=== PATIENT | male | born 1930 ===

== ENCOUNTER 2016-11-19 06:51 | Inpatient (IN) | payer MEDICARE ==
[2016-11-05 10:25] VITALS: BMI 33.2
[2016-11-19] MEDS ORDERED: Propofol 10 mg/ml Inj (20 ML) ONE (08:38)
[2016-11-19] MEDS ORDERED: Midazolam 2 MG/2 ML VIAL ONE (08:38)
[2016-11-19] MEDS ORDERED: Rocuronium 10 mg/ml (5 ml) ONE (08:40)
[2016-11-19] MEDS ORDERED: Phenylephrine 10 mg/ml Inj ONE ×2 (08:40)
[2016-11-19] MEDS ORDERED: CEFOXITIN IVPB ONE (08:52)
[2016-11-19] MEDS ORDERED: Bupivacaine/Epi 0.25%-1:200,000 10 ml PF inj IJ ONE (08:52)
[2016-11-19] MEDS ORDERED: DEXTROSE IVPB ONE (08:52)
[2016-11-19] MEDS ORDERED: Lidocaine 1% Inj (20ml) ONE (08:53)
[2016-11-19] MEDS ORDERED: Albuterol HFA 90 mcg/actuation (8 g) ONE (09:01)
[2016-11-19] MEDS ORDERED: ceFAZolin IV 2 gm in Dextrose 50 ML IVPB ONE (09:12)
[2016-11-19] MEDS ORDERED: metroNIDAZOLE IV 500 mg/100 ml 100 ML ONE (09:12)
[2016-11-19] MEDS ORDERED: Neostigmine Methylsulfate 3mg/3ml Syringe IV ONE (11:50)
[2016-11-19] MEDS ORDERED: Lactated Ringer's 1,000 ML IV ONE ×3 (12:35→15:41)
[2016-11-19] MEDS ORDERED: Morphine 4 MG/ML VIAL ONE ×3 (13:07→14:49)
[2016-11-19] MEDS ORDERED: ceFAZolin IV 1 gm in Dextrose 100 ML IVPB ONE (13:55)
--- NOTE | 2016-11-19 15:46 | PCM.SURG1 ---
Surgeon's Initial Post Op Note - Surgeon's Notes Surgeon: Dr. Lopez Mold Capper Helper: Dr. 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
[2016-11-19] MEDS ORDERED: HYDROmorphone 0.5 mg/0.5 ml ISec IVP PRN (15:47)
[2016-11-19] MEDS ORDERED: Morphine Monoject Barrel PCA 1mg/ml IV SCH ×3 (15:48→18:39)
[2016-11-19] MEDS ORDERED: (Novolin R) Insulin Human Regular 100 units/ml vial SC SCH (16:30)
[2016-11-19] MEDS: Dextrose 5%/0.45% NS 1,000 ML IV SCH ×2 (16:30→18:48)
[2016-11-19] MEDS ORDERED: Morphine Monoject Barrel PCA 1mg/ml IV PRN (18:37)
--- NOTE | 2016-11-19 22:28 | CP.PCM.CON ---
History of Present Illness - History of Present Illness History of Present Illness: REASON FOR CONSULTATION; MEDICAL MANAGMENT OF DM HPI:DIDIER GUZMAN MALE WITNH DM, HTN, EX SMOKER, UNDERWENT Robotic assisted abdominal perineal resection for rectal carcinoma,he eyad any history of heart problems, right now he is being started on pateint controlled analgesia by pump , he is calm and quiet, he feels some soreness in thraot and post op pain diffuse in abdomen, denies any chest pain, shortness of breath, pt is in bed and cant move Review of Systems - Review of Systems Systems not reviewed;Unavailable: Acuity of Condition - Constitutional Constitutional: Fatigue, Lethargy - EENT Eyes: absent: As Per HPI, Blind Spots, Blurred Vision, Change in Vision, Decreased Night Vision, Diplopia, Discharge, Dry Eye, Exophthalmos, Floaters, Irritation, Itchy Eyes, Loss of Peripheral Vision, Pain, Photophobia, Requires Corrective Lenses, Sees Flashes, Spots in Vision, Tunnel Vision, Other Visual Disturbances, Loss of Vision, Other Nose/Mouth/Throat: absent: As Per HPI, Epistaxis, Nasal Congestion, Nasal Discharge, Nasal Obstruction, Nasal Trauma, Nose Pain, Post Nasal Drip, Sinus Pain, Sinus Pressure, Bleeding Gums, Change in Voice, Dental Pain, Dry Mouth, Dysphagia, Halitosis, Hoarsness, Lip Swelling, Mouth Lesions, Mouth Pain, Odynophagia, Sore Throat, Throat Swelling, Tongue Swelling, Facial Pain, Neck Pain, Neck Mass, Other - Cardiovascular Cardiovascular: absent: As Per HPI, Acrocyanosis, Chest Pain, Chest Pain at Rest , Chest Pain with Activity, Claudication, Diaphoresis, Dyspnea, Dyspnea on Exertion, Edema, Irregular Heart Rhythm, Pain Radiating to Arm/Neck/Jaw, Leg Edema, Leg Ulcers, Lightheadedness, Orthopnea, Palpitations, Paroxysmal Nocturnal Dyspnea, Pedal Edema, Radiating Pain, Rapid Heart Rate, Slow Heart Rate, Syncope, Other - Respiratory Respiratory: absent: As Per HPI, Cough, Dyspnea, Hemoptysis, Dyspnea on Exertion , Wheezing, Snoring, Stridor, Pain on Inspiration, Chest Congestion, Excessive Mucous Production, Change in Mucous Color, Pain with Coughing, Other - Gastrointestinal Gastrointestinal: Abdominal Pain - Genitourinary Genitourinary: absent: As Per HPI, Change in Urinary Stream, Difficulty Urinating, Dysuria, Flank Pain, Hematuria, Pyuria, Nocturia, Urinary Incontinence, Urinary Frequency, Urinary Hesitance, Urinary Urgency, Voiding Freq/Small Amts, Freq UTI, Hx Renal/Bladder Calculi, Hx /Renal Surgery, Bladder Distension, Other Past Patient History - Past Medical History & Family History Past Medical History?: Yes - Past Social History Smoking Status: Former Smoker - CARDIAC Hx Cardiac Disorders: Yes Hx Hypercholesterolemia: Yes Hx Hypertension: Yes - PULMONARY Hx Respiratory Disorders: Yes Hx Chronic Obstructive Pulmonary Disease (COPD): Yes - NEUROLOGICAL Hx Neurological Disorder: Yes Hx Seizures: Yes (03/22/02; 04/22/02; 08/28/03) Other/Comment: HX: SEIZURES X3 EPISODES-NONE SINCE 08/28/03 - HEENT Hx HEENT Problems: Yes Hx Cataracts: Yes (BILAT.) - ENDOCRINE/METABOLIC Hx Endocrine Disorders: Yes Hx Diabetes Mellitus Type 2: Yes Hx Hypothyroidism: Yes - HEMATOLOGICAL/ONCOLOGICAL Hx Blood Disorders: Yes Hx Cancer: Yes (COLON CANCER) Hx Chemotherapy: Yes (AND RADIATION [place].(FINISHED 08/19/2013)) - MUSCULOSKELETAL/RHEUMATOLOGICAL Hx Falls: No - GASTROINTESTINAL Hx Gastrointestinal Disorders: Yes Other/Comment: HX: COLON CANCER. HX: RECURRENT SQUAMOUS CELL CARCINOMA OF RECTUM. - PSYCHIATRIC Hx Substance Use: No - SURGICAL HISTORY Hx Surgeries: Yes Hx Appendectomy: Yes Hx Cataract Extraction: Yes (BILAT. WITH IOL IMPLANTS) Other/Comment: HX: COLON RESECTION 2012-COLON CANCER - ANESTHESIA Hx Anesthesia: Yes Hx Anesthesia Reactions: No Hx Malignant Hyperthermia: No Has any member of the family had a problem w/ anesthesia?: No Meds Allergies/Adverse Reactions: Allergies Allergy/AdvReac Type Severity Reaction Status Date / Time No Known Allergies Allergy Verified 11/05/16 10:25 - Medications Medications: Current Medications Enoxaparin Sodium (Lovenox) 40 mg SC DAILY [facility] Dextrose/Sodium Chloride (Dextrose 5%/0.45% Ns 1000 Ml) 1,000 mls @ 125 mls/hr IV .Q8H [facility] Last Admin: 11/19/16 18:48 Dose: 125 mls/hr Cefazolin Sodium (Ancef) 50 mls @ 100 mls/hr IVPB Q8H [facility] Stop: 11/20/16 05:44 Insulin Human Regular (Novolin R) 0 unit SC ACHS [facility] PRN Reason: Protocol Morphine Sulfate/Sodium Chloride (Morphine [employer] Monoject Barrel) 30 mg IV Q4H PRN; Protocol PRN Reason: Pain, Mild (1-3) Ondansetron HCl (Zofran Inj) 4 mg IVP Q4 PRN PRN Reason: Nausea/Vomiting Physical Exam - Constitutional Appears: No Acute Distress Additional comments: post op - Eye Exam Eye Exam: EOMI, Normal appearance, PERRL Pupil Exam: NORMAL ACCOMODATION, PERRL - ENT Exam ENT Exam: Mucous Membranes Moist, Normal Exam - Respiratory Exam Respiratory Exam: Clear to Auscultation Bilateral, NORMAL BREATHING PATTERN - Cardiovascular Exam Cardiovascular Exam: REGULAR RHYTHM - GI/Abdominal Exam GI & Abdominal Exam: Normal Bowel Sounds, Soft Additional comments: pot op tenderness diffuse Results - Vital Signs Recent Vital Signs: Last Vital Signs Temp 97.9 F 11/19/16 18:49 Pulse 72 11/19/16 18:49 Resp 18 11/19/16 20:30 BP 104/62 11/19/16 18:49 Pulse Ox 98 11/19/16 20:30 - Labs Labs: Laboratory Results - last 24 hr 11/19/16 11/19/16 11/19/16 07:40 07:57 16:25 POC Glucose (mg/dL) 116 H 115 H Blood Type B POSITIVE Antibody Screen Negative 11/19/16 21:45 POC Glucose (mg/dL) 210 H Blood Type Antibody Screen Assessment & Plan (1) Rectal cancer Status: Acute Comment: s/p surgery Robotic assisted abdominal perineal resection (2) Diabetes Status: Acute
[2016-11-19] MEDS: (Novolin R) Insulin Human Regular 100 units/ml vial SC SCH (22:36)
[2016-11-19] MEDS: ceFAZolin 1 gm FROZEN Premix 50 ML IVPB SCH (22:40)
[2016-11-20] MEDS: Dextrose 5%/0.45% NS 1,000 ML IV SCH (01:40)
[2016-11-20] MEDS: ceFAZolin 1 gm FROZEN Premix 50 ML IVPB SCH (05:12)
[2016-11-20] MEDS: (Novolin R) Insulin Human Regular 100 units/ml vial SC SCH ×4 (07:30→22:00)
[2016-11-20 08:19] LABS: BASO % 0.1 % (0.0-2.0); EOS % 0.2 % (0.0-4.0); HEMATOCRIT 34.8 % (35.0-51.0); LYMPH # 0.8 K/uL (1.0-4.3); LYMPH % 10.6 % (20.0-40.0); MEAN CELL VOLUME 97.5 fL (80.0-94.0); MEAN CORPUSCULAR HEMOGLOBIN 32.4 pg (27.0-31.0); MEAN CORPUSCULAR HGB CONC 33.2 g/dL (33.0-37.0); MEAN PLATELET VOLUME 7.4 fL (7.2-11.7); RED CELL DISTRIBUTION WIDTH 13.9 % (11.5-14.5); WHITE BLOOD COUNT 7.5 K/uL (4.8-10.8)
[2016-11-20 08:23] LABS: CHLORIDE 98 mmol/L (98-107)
[2016-11-20 08:24] LABS: SODIUM 135 mmol/L (132-148)
[2016-11-20 08:26] LABS: ALB/GLOB RATIO 1.4 (1.0-2.1); ALKALINE PHOSPHATASE 42 U/L (38-126); AST/SGOT 33 U/L (17-59); BILIRUBIN,TOTAL 0.3 mg/dL (0.2-1.3); CARBON DIOXIDE 28 mmol/L (22-30); GFR AFRICAN-AMERICAN > 60; TOTAL PROTEIN 5.7 g/dL (6.3-8.3)
[2016-11-20 08:27] LABS: ALT/SGPT 38 U/L (21-72); BLOOD UREA NITROGEN 9 mg/dL (9-20); CALCIUM 7.3 mg/dl (8.6-10.4); GLUCOSE,RANDOM 127 mg/dL (75-110)
[2016-11-20] MEDS: Potassium Chloride 20 mEq 100 ML IVPB SCH ×2 (09:45→11:45)
[2016-11-20] MEDS ORDERED: Potassium Chloride 20 mEq 100 ML IVPB SCH (09:45)
[2016-11-20] MEDS: Potassium Chl 40 mEq in D5-1/2 1,000 ML IV SCH ×2 (09:45→18:00)
[2016-11-20] MEDS: Enoxaparin 40 mg Syringe SC SCH (11:00)
--- NOTE | 2016-11-20 16:40 | CP.PCM.PN ---
<Ramya Hills - Last Filed: 11/20/16 16:37> Subjective - Date & Time of Evaluation Date of Evaluation: 11/20/16 Time of Evaluation: 08:00 - Subjective Subjective: GENERAL SURGERY PROGRESS NOTE FOR DR. LOPEZ Patient seen and examined at bedside. He states that he is doing well but does not like the Dilaudid [employer]INTING FILM STRIPPER due to the beeping which kept him up at night. He denies nausea or vomiting. He remains NPO with NG tube in place. Goins in place. Per nurse, patient is not using the PRINTING [employer]M STRIPPER very much. Objective - Vital Signs/Intake and Output Vital Signs (last 24 hours): Temp Pulse Resp BP Pulse Ox 100.5 F H 62 20 111/68 95 11/20/16 15:00 11/20/16 15:30 11/20/16 15:00 11/20/16 15:00 11/20/16 15:00 Intake and Output: 11/20/16 11/20/16 06:59 18:59 Intake Total 2000 Output Total 860 Balance 1140 - Medications Medications: Current Medications Enoxaparin Sodium (Lovenox) 40 mg SC DAILY [facility] Last Admin: 11/20/16 11:00 Dose: 40 mg Potassium Chloride/Dextrose/Sod Cl (Potassium Chl 40 Meq In D5-1/2ns) 1,000 mls @ 125 mls/hr IV .Q8H [facility] Insulin Human Regular (Novolin R) 0 unit SC ACHS [facility] PRN Reason: Protocol Last Admin: 11/20/16 11:30 Dose: Not Given Morphine Sulfate (Morphine) 4 mg IV Q4 PRN PRN Reason: Pain, moderate (4-7) Ondansetron HCl (Zofran Inj) 4 mg IVP Q4 PRN PRN Reason: Nausea/Vomiting - Labs Labs: 11/20/16 08:09 11/20/16 08:09 - Constitutional Appears: Non-toxic, No Acute Distress - Head Exam Head Exam: ATRAUMATIC, NORMAL INSPECTION - Eye Exam Eye Exam: EOMI, Normal appearance - Respiratory Exam Respiratory Exam: NORMAL BREATHING PATTERN. absent: Respiratory Distress - Cardiovascular Exam Cardiovascular Exam: +S1, +S2 - GI/Abdominal Exam GI & Abdominal Exam: Soft, Tenderness (mild tenderness near incision site). absent: Distended, Firm, Guarding, Rigid, Rebound Additional comments: Colostomy bag with small amount of serosanguinous liquid - Rectal Exam Additional comments: Dressing clean/dry/intact Lionel drain with 110 cc since surgery - Neurological Exam Neurological Exam: Alert, Awake, Oriented x3 - Psychiatric Exam Psychiatric exam: Normal Affect, Normal Mood - Skin Skin Exam: Dry, Normal Color, Warm Assessment and Plan - Assessment and Plan (Free Text) Assessment: 86yo M with PMHx of DM, HTN, COPD and squamous cell carcinoma of rectum now s/p Robotic assisted abdominal perineal resection POD#1 - Afebrile, VSS - Hemoglobin 11.6, will check daily CBC - Hypokalemia K 3.0 - replaced - Lionel drain with 110cc since surgery - NG tube removed - Goins removed - Advanced to CLD - Lovenox to start today - Discussed plan with Dr. John Hills PGY-2 <Dawson Lopez - Last Filed: 11/23/16 10:30> Objective - Vital Signs/Intake and Output Vital Signs (last 24 hours): Temp Pulse Resp BP Pulse Ox 98.2 F 50 L 18 139/81 97 11/23/16 07:40 11/23/16 07:40 11/23/16 07:40 11/23/16 07:40 11/23/16 07:40 Intake and Output: 11/23/16 11/23/16 06:59 18:59 Intake Total 910 Output Total 1670 Balance -760 - Medications Medications: Current Medications Acetaminophen (Tylenol 325mg Tab) 650 mg PO Q6 PRN PRN Reason: Fever >100.4 F Enoxaparin Sodium (Lovenox) 40 mg SC DAILY [facility] Last Admin: 11/22/16 10:12 Dose: 40 mg Insulin Human Regular (Novolin R) 0 unit SC ACHS [facility] PRN Reason: Protocol Last Admin: 11/23/16 07:30 Dose: Not Given Ondansetron HCl (Zofran Inj) 4 mg IVP Q4 PRN PRN Reason: Nausea/Vomiting Oxycodone/Acetaminophen (Percocet 5/325 Mg Tab) 1 tab PO Q4H PRN PRN Reason: Pain, moderate (4-7) Stop: 11/25/16 20:30 Last Admin: 11/22/16 21:10 Dose: 1 tab Tamsulosin HCl (Flomax) 0.4 mg PO DAILY [facility] Last Admin: 11/22/16 10:00 Dose: 0.4 mg - Labs Labs: 11/23/16 07:56 11/23/16 07:56 Attending/Attestation - Attestation I have personally seen and examined this patient.: Yes I have fully participated in the care of the patient.: Yes I have reviewed all pertinent clinical information, including history, physical exam and plan: Yes Notes (Text): 11/23/16 10:29 Pt was seen and examined at bedside on 11/20/16 Agree with above note and assessment
[2016-11-20] MEDS: Morphine 4 MG/ML VIAL IV PRN (17:30)
[2016-11-21] MEDS: Potassium Chl 40 mEq in D5-1/2 1,000 ML IV SCH ×5 (01:45→22:32)
--- NOTE | 2016-11-21 01:59 | CP.PCM.PN ---
Subjective - Date & Time of Evaluation Date of Evaluation: 11/20/16 Time of Evaluation: 09:35 - Subjective Subjective: Patient seen and examined at bedside. he is c/o urinary retention , he cannot pee, foleys will be inserted, He denies nausea or vomiting. He remains NPO with NG tube in place. . Objective - Vital Signs/Intake and Output Vital Signs (last 24 hours): Temp Pulse Resp BP Pulse Ox 100.2 F H 71 20 112/70 94 L 11/20/16 23:05 11/20/16 23:05 11/20/16 23:05 11/20/16 23:05 11/20/16 23:05 Intake and Output: 11/20/16 11/21/16 18:59 06:59 Output Total 805 Balance -805 - Medications Medications: Current Medications Enoxaparin Sodium (Lovenox) 40 mg SC DAILY [facility] Last Admin: 11/20/16 11:00 Dose: 40 mg Potassium Chloride/Dextrose/Sod Cl (Potassium Chl 40 Meq In D5-1/2ns) 1,000 mls @ 125 mls/hr IV .Q8H [facility] Last Admin: 11/20/16 18:00 Dose: 125 mls/hr Insulin Human Regular (Novolin R) 0 unit SC ACHS [facility] PRN Reason: Protocol Last Admin: 11/20/16 22:00 Dose: Not Given Morphine Sulfate (Morphine) 4 mg IV Q4 PRN PRN Reason: Pain, moderate (4-7) Last Admin: 11/20/16 17:30 Dose: 4 mg Ondansetron HCl (Zofran Inj) 4 mg IVP Q4 PRN PRN Reason: Nausea/Vomiting - Labs Labs: 11/20/16 08:09 11/20/16 08:09 - Constitutional Appears: No Acute Distress - Head Exam Head Exam: ATRAUMATIC, NORMAL INSPECTION, NORMOCEPHALIC - Eye Exam Eye Exam: EOMI, Normal appearance, PERRL Pupil Exam: NORMAL ACCOMODATION, PERRL - Cardiovascular Exam Cardiovascular Exam: REGULAR RHYTHM, +S1, +S2. absent: Murmur - GI/Abdominal Exam GI & Abdominal Exam: Soft, Normal Bowel Sounds. absent: Tenderness - Rectal Exam Rectal Exam: NORMAL INSPECTION Assessment and Plan (1) Rectal cancer Status: Acute (2) Diabetes Status: Acute
[2016-11-21] MEDS: Morphine 4 MG/ML VIAL IV PRN ×2 (05:57→22:33)
[2016-11-21 06:28] LABS: BASO % 0.1 % (0.0-2.0); EOS # 0.1 K/uL (0.0-0.7); EOS % 0.8 % (0.0-4.0); HEMATOCRIT 32.4 % (35.0-51.0); LYMPH # 0.9 K/uL (1.0-4.3); LYMPH % 13.3 % (20.0-40.0); MEAN CELL VOLUME 97.2 fL (80.0-94.0); MEAN CORPUSCULAR HEMOGLOBIN 33.2 pg (27.0-31.0); MEAN CORPUSCULAR HGB CONC 34.2 g/dL (33.0-37.0); MEAN PLATELET VOLUME 7.3 fL (7.2-11.7); MONO # 0.9 K/uL (0.0-0.8); MONO % 12.9 % (0.0-10.0); RED CELL DISTRIBUTION WIDTH 14.2 % (11.5-14.5); WHITE BLOOD COUNT 6.8 K/uL (4.8-10.8)
[2016-11-21 06:43] LABS: CHLORIDE 100 mmol/L (98-107)
[2016-11-21 06:44] LABS: SODIUM 136 mmol/L (132-148)
[2016-11-21 06:45] LABS: POTASSIUM 3.4 mmol/L (3.6-5.2)
[2016-11-21 06:46] LABS: BILIRUBIN,TOTAL 0.7 mg/dL (0.2-1.3); GFR AFRICAN-AMERICAN > 60
[2016-11-21 06:47] LABS: ALB/GLOB RATIO 1.2 (1.0-2.1); ALKALINE PHOSPHATASE 44 U/L (38-126); ALT/SGPT 35 U/L (21-72); AST/SGOT 31 U/L (17-59); BLOOD UREA NITROGEN 6 mg/dL (9-20); CALCIUM 7.3 mg/dl (8.6-10.4); CARBON DIOXIDE 28 mmol/L (22-30); GLUCOSE,RANDOM 118 mg/dL (75-110); TOTAL PROTEIN 5.8 g/dL (6.3-8.3)
[2016-11-21] MEDS: (Novolin R) Insulin Human Regular 100 units/ml vial SC SCH ×4 (07:30→22:33)
[2016-11-21] MEDS: Enoxaparin 40 mg Syringe SC SCH (09:45)
[2016-11-21] MEDS ORDERED: Potassium Chloride 20 mEq ER Tab PO ONE (12:04)
--- NOTE | 2016-11-21 12:14 | CP.PCM.PN ---
<Ramya Hills - Last Filed: 11/21/16 12:17> Subjective - Date & Time of Evaluation Date of Evaluation: 11/21/16 Time of Evaluation: 07:00 - Subjective Subjective: GENERAL SURGERY PROGRESS NOTE FOR DR. PARIS Patient seen and examined at bedside. He states that his pain is well controlled by the Morphine. He is tolerating his clear liquid diet and denies nausea or vomiting. He ambulated in his room with PT. Last night, he was unable to urinate. Dr. Grant ordered saw the patiend and ordered the Goins to be reinserted. Objective - Vital Signs/Intake and Output Vital Signs (last 24 hours): Temp Pulse Resp BP Pulse Ox 98.6 F 61 18 111/67 95 11/21/16 07:50 11/21/16 07:50 11/21/16 07:50 11/21/16 07:50 11/21/16 07:50 Intake and Output: 11/21/16 11/21/16 06:59 18:59 Output Total 2004 Balance -2004 - Medications Medications: Current Medications Acetaminophen (Tylenol 325mg Tab) 650 mg PO Q6 PRN PRN Reason: Fever >100.4 F Enoxaparin Sodium (Lovenox) 40 mg SC DAILY [facility] Last Admin: 11/20/16 11:00 Dose: 40 mg Potassium Chloride/Dextrose/Sod Cl (Potassium Chl 40 Meq In D5-1/2ns) 1,000 mls @ 125 mls/hr IV .Q8H [facility] Last Admin: 11/20/16 18:00 Dose: 125 mls/hr Insulin Human Regular (Novolin R) 0 unit SC ACHS [facility] PRN Reason: Protocol Last Admin: 11/21/16 07:30 Dose: Not Given Morphine Sulfate (Morphine) 4 mg IV Q4 PRN PRN Reason: Pain, moderate (4-7) Last Admin: 11/21/16 05:57 Dose: 4 mg Ondansetron HCl (Zofran Inj) 4 mg IVP Q4 PRN PRN Reason: Nausea/Vomiting Potassium Chloride (K-Dur 20 Meq Er Tab) 40 meq PO ONCE ONE Stop: 11/21/16 12:05 Tamsulosin HCl (Flomax) 0.4 mg PO DAILY [facility] - Labs Labs: 11/21/16 06:21 11/21/16 06:21 - Constitutional Appears: Well, Non-toxic, No Acute Distress - Head Exam Head Exam: ATRAUMATIC, NORMAL INSPECTION - Eye Exam Eye Exam: EOMI, Normal appearance - Respiratory Exam Respiratory Exam: NORMAL BREATHING PATTERN. absent: Respiratory Distress - GI/Abdominal Exam GI & Abdominal Exam: Soft, Tenderness (mild tenderness around incision sites). absent: Distended, Firm, Guarding, Rigid, Rebound Additional comments: Dressings clean/dry/intact Colostomy with small amount of serosanguinous drainage - Rectal Exam Additional comments: Dressing clean/dry/intact Lionel drain with 120 cc output over past 24 hours - Neurological Exam Neurological Exam: Alert, Awake, Oriented x3 - Psychiatric Exam Psychiatric exam: Normal Affect, Normal Mood - Skin Skin Exam: Dry, Normal Color, Warm Assessment and Plan - Assessment and Plan (Free Text) Assessment: 86yo M with PMHx of DM, HTN, COPD and squamous cell carcinoma of rectum now s/p Robotic assisted abdominal perineal resection POD#2 - Tmax 100.5, currently Afebrile - Hemoglobin 11.1, stable from yesterday - Hypokalemia K 3.4 - ordered 40 meq PO KCl - Lionel drain with 120cc output over past 24 hours - Goins was reinserted last night due to pt unable to urinate. - Ordered Flomax - Tolerating CLD - Getting PT - Discussed plan with Dr. John Hills PGY-2 <Dawson Paris - Last Filed: 11/23/16 10:31> Objective - Vital Signs/Intake and Output Vital Signs (last 24 hours): Temp Pulse Resp BP Pulse Ox 98.2 F 50 L 18 139/81 97 11/23/16 07:40 11/23/16 07:40 11/23/16 07:40 11/23/16 07:40 11/23/16 07:40 Intake and Output: 11/23/16 11/23/16 06:59 18:59 Intake Total 910 Output Total 1670 Balance -760 - Medications Medications: Current Medications Acetaminophen (Tylenol 325mg Tab) 650 mg PO Q6 PRN PRN Reason: Fever >100.4 F Enoxaparin Sodium (Lovenox) 40 mg SC DAILY [facility] Last Admin: 11/22/16 10:12 Dose: 40 mg Insulin Human Regular (Novolin R) 0 unit SC ACHS [facility] PRN Reason: Protocol Last Admin: 11/23/16 07:30 Dose: Not Given Ondansetron HCl (Zofran Inj) 4 mg IVP Q4 PRN PRN Reason: Nausea/Vomiting Oxycodone/Acetaminophen (Percocet 5/325 Mg Tab) 1 tab PO Q4H PRN PRN Reason: Pain, moderate (4-7) Stop: 11/25/16 20:30 Last Admin: 11/22/16 21:10 Dose: 1 tab Tamsulosin HCl (Flomax) 0.4 mg PO DAILY [facility] Last Admin: 11/22/16 10:00 Dose: 0.4 mg - Labs Labs: 11/23/16 07:56 11/23/16 07:56 Attending/Attestation - Attestation I have personally seen and examined this patient.: Yes I have fully participated in the care of the patient.: Yes I have reviewed all pertinent clinical information, including history, physical exam and plan: Yes Notes (Text): 11/23/16 10:31 Pt was seen and examined at bedside on 11/21/16 Agree with above note and assessment
[2016-11-22] MEDS: Potassium Chl 40 mEq in D5-1/2 1,000 ML IV SCH ×4 (01:40→22:17)
[2016-11-22 07:03] LABS: BASO % 0.1 % (0.0-2.0); CHLORIDE 106 mmol/L (98-107); EOS # 0.2 K/uL (0.0-0.7); EOS % 4.5 % (0.0-4.0); HEMATOCRIT 32.7 % (35.0-51.0); LYMPH # 0.7 K/uL (1.0-4.3); LYMPH % 13.9 % (20.0-40.0); MEAN CELL VOLUME 97.3 fL (80.0-94.0); MEAN CORPUSCULAR HEMOGLOBIN 32.8 pg (27.0-31.0); MEAN CORPUSCULAR HGB CONC 33.7 g/dL (33.0-37.0); MEAN PLATELET VOLUME 7.5 fL (7.2-11.7); MONO # 0.6 K/uL (0.0-0.8); MONO % 12.7 % (0.0-10.0); SODIUM 140 mmol/L (132-148); WHITE BLOOD COUNT 4.7 K/uL (4.8-10.8)
[2016-11-22 07:05] LABS: BILIRUBIN,TOTAL 0.3 mg/dL (0.2-1.3); GFR AFRICAN-AMERICAN > 60
[2016-11-22 07:06] LABS: ALB/GLOB RATIO 1.2 (1.0-2.1); ALKALINE PHOSPHATASE 43 U/L (38-126); ALT/SGPT 26 U/L (21-72); AST/SGOT 28 U/L (17-59); BLOOD UREA NITROGEN 4 mg/dL (9-20); CALCIUM 7.8 mg/dl (8.6-10.4); CARBON DIOXIDE 23 mmol/L (22-30); GLUCOSE,RANDOM 116 mg/dL (75-110); TOTAL PROTEIN 5.4 g/dL (6.3-8.3)
[2016-11-22] MEDS: (Novolin R) Insulin Human Regular 100 units/ml vial SC SCH ×4 (07:30→21:47)
--- NOTE | 2016-11-22 10:04 | CP.PCM.PN ---
Subjective - Date & Time of Evaluation Date of Evaluation: 11/22/16 Time of Evaluation: 07:00 - Subjective Subjective: GENERAL SURGERY PROGRESS NOTE FOR DR. PARIS Patient seen and examined at bedside. He is doing well and states that he has no abdominal pain unless he is walking. He is tolerating his clear liquid diet and denies nausea or vomiting but states that he has no appetite. He is ambulating in his room and been OOB to chair with his . He is using his IS. Objective - Vital Signs/Intake and Output Vital Signs (last 24 hours): Temp Pulse Resp BP Pulse Ox 97.8 F 59 L 20 131/66 98 11/22/16 09:21 11/22/16 09:21 11/22/16 09:21 11/22/16 09:21 11/22/16 09:21 Intake and Output: 11/22/16 11/22/16 06:59 18:59 Intake Total 1400 Output Total 2515 Balance -1115 - Medications Medications: Current Medications Acetaminophen (Tylenol 325mg Tab) 650 mg PO Q6 PRN PRN Reason: Fever >100.4 F Enoxaparin Sodium (Lovenox) 40 mg SC DAILY [facility] Last Admin: 11/21/16 09:45 Dose: 40 mg Potassium Chloride/Dextrose/Sod Cl (Potassium Chl 40 Meq In D5-1/2ns) 1,000 mls @ 70 mls/hr IV .[id number] [facility] Insulin Human Regular (Novolin R) 0 unit SC ACHS [facility] PRN Reason: Protocol Last Admin: 11/21/16 22:33 Dose: Not Given Morphine Sulfate (Morphine) 4 mg IV Q4 PRN PRN Reason: Pain, moderate (4-7) Last Admin: 11/21/16 22:33 Dose: 4 mg Ondansetron HCl (Zofran Inj) 4 mg IVP Q4 PRN PRN Reason: Nausea/Vomiting Tamsulosin HCl (Flomax) 0.4 mg PO DAILY [facility] Last Admin: 11/21/16 10:30 Dose: 0.4 mg - Labs Labs: 11/22/16 06:40 11/22/16 06:40 - Constitutional Appears: Non-toxic, No Acute Distress - Head Exam Head Exam: ATRAUMATIC, NORMAL INSPECTION - Eye Exam Eye Exam: EOMI, Normal appearance - Respiratory Exam Respiratory Exam: NORMAL BREATHING PATTERN. absent: Respiratory Distress - Cardiovascular Exam Cardiovascular Exam: +S1, +S2 - GI/Abdominal Exam GI & Abdominal Exam: Soft, Tenderness (mild tenderness around incisions). absent: Distended, Firm, Guarding, Rigid, Rebound Additional comments: Dressings clean/dry/intact Colostomy with small amount of liquid stool - Rectal Exam Additional comments: Dressing clean/dry/intact Lionel drain with 105 cc output over past 24 hours - Neurological Exam Neurological Exam: Alert, Awake, Oriented x3 - Psychiatric Exam Psychiatric exam: Normal Affect, Normal Mood - Skin Skin Exam: Dry, Normal Color, Warm Assessment and Plan - Assessment and Plan (Free Text) Assessment: 86yo M with PMHx of DM, HTN, COPD and squamous cell carcinoma of rectum now s/p Robotic assisted abdominal perineal resection POD#3 - Afebrile, VSS - Hypokalemia resolved - Lionel drain with 105cc output over past 24 hours - On Flomax with good urine output - Goins DCed, will do void trial - Liquid stool in colostomy - Tolerating CLD, advanced to full liquid diet - Getting PT - Discussed plan with Dr. John Hills PGY-2
[2016-11-22] MEDS: Enoxaparin 40 mg Syringe SC SCH (10:12)
--- NOTE | 2016-11-22 14:11 | CP.PCM.PN ---
Subjective - Date & Time of Evaluation Date of Evaluation: 11/21/16 Time of Evaluation: 09:49 - Subjective Subjective: Patient seen and examined at bedside. He states that his pain is well controlled by the Morphine. He is tolerating his clear liquid diet and denies nausea or vomiting. He ambulated in his room with PT, Goins in place due to urinary retetntion, on post op care Objective - Vital Signs/Intake and Output Vital Signs (last 24 hours): Temp Pulse Resp BP Pulse Ox 97.8 F 59 L 20 131/66 98 11/22/16 09:21 11/22/16 09:21 11/22/16 09:21 11/22/16 09:21 11/22/16 09:21 Intake and Output: 11/22/16 11/22/16 06:59 18:59 Intake Total 1400 Output Total 2515 Balance -1115 - Medications Medications: Current Medications Acetaminophen (Tylenol 325mg Tab) 650 mg PO Q6 PRN PRN Reason: Fever >100.4 F Enoxaparin Sodium (Lovenox) 40 mg SC DAILY [facility] Last Admin: 11/22/16 10:12 Dose: 40 mg Potassium Chloride/Dextrose/Sod Cl (Potassium Chl 40 Meq In D5-1/2ns) 1,000 mls @ 70 mls/hr IV .[id number] [facility] Last Admin: 11/22/16 08:00 Dose: 70 mls/hr Insulin Human Regular (Novolin R) 0 unit SC ACHS [facility] PRN Reason: Protocol Last Admin: 11/22/16 07:30 Dose: Not Given Morphine Sulfate (Morphine) 4 mg IV Q4 PRN PRN Reason: Pain, moderate (4-7) Last Admin: 11/21/16 22:33 Dose: 4 mg Ondansetron HCl (Zofran Inj) 4 mg IVP Q4 PRN PRN Reason: Nausea/Vomiting Tamsulosin HCl (Flomax) 0.4 mg PO DAILY [facility] Last Admin: 11/22/16 10:00 Dose: 0.4 mg - Labs Labs: 11/22/16 06:40 11/22/16 06:40 - Constitutional Appears: No Acute Distress - Head Exam Head Exam: ATRAUMATIC, NORMAL INSPECTION, NORMOCEPHALIC - Eye Exam Eye Exam: EOMI, Normal appearance, PERRL Pupil Exam: NORMAL ACCOMODATION, PERRL - Respiratory Exam Respiratory Exam: Clear to Ausculation Bilateral, NORMAL BREATHING PATTERN - Cardiovascular Exam Cardiovascular Exam: REGULAR RHYTHM, +S1, +S2. absent: Murmur - GI/Abdominal Exam GI & Abdominal Exam: Soft, Normal Bowel Sounds. absent: Tenderness Assessment and Plan (1) Rectal cancer Status: Acute (2) Diabetes Status: Acute
[2016-11-22] MEDS: Oxycodone/Acetaminophen 5/325 mg Tab PO PRN (21:10)
[2016-11-23] MEDS: (Novolin R) Insulin Human Regular 100 units/ml vial SC SCH ×4 (07:30→22:00)
[2016-11-23 08:05] LABS: BASO % 0.2 % (0.0-2.0); EOS # 0.2 K/uL (0.0-0.7); LYMPH # 0.7 K/uL (1.0-4.3); LYMPH % 15.7 % (20.0-40.0); MEAN CORPUSCULAR HEMOGLOBIN 33.2 pg (27.0-31.0); MEAN CORPUSCULAR HGB CONC 34.2 g/dL (33.0-37.0); MEAN PLATELET VOLUME 7.7 fL (7.2-11.7); MONO # 0.5 K/uL (0.0-0.8); MONO % 10.7 % (0.0-10.0); RED CELL DISTRIBUTION WIDTH 14.2 % (11.5-14.5); WHITE BLOOD COUNT 4.4 K/uL (4.8-10.8)
[2016-11-23 08:30] LABS: CHLORIDE 104 mmol/L (98-107); POTASSIUM 3.9 mmol/L (3.6-5.2); SODIUM 139 mmol/L (132-148)
[2016-11-23 08:33] LABS: ALB/GLOB RATIO 1.2 (1.0-2.1); ALKALINE PHOSPHATASE 47 U/L (38-126); ALT/SGPT 38 U/L (21-72); AST/SGOT 30 U/L (17-59); BILIRUBIN,TOTAL 0.3 mg/dL (0.2-1.3); BLOOD UREA NITROGEN 7 mg/dL (9-20); CALCIUM 8.3 mg/dl (8.6-10.4); CARBON DIOXIDE 25 mmol/L (22-30); GFR AFRICAN-AMERICAN > 60; GLUCOSE,RANDOM 110 mg/dL (75-110); TOTAL PROTEIN 6.3 g/dL (6.3-8.3)
--- NOTE | 2016-11-23 09:13 | CP.PCM.PN ---
Subjective - Date & Time of Evaluation Date of Evaluation: 11/23/16 Time of Evaluation: 08:00 - Subjective Subjective: GENERAL SURGERY PROGRESS NOTE FOR DR. PARIS Patient seen and examined at bedside. He is doing well but has some pain at the rectal area. He is off Morphine now and just receiving Percocet. He is tolerating his full liquid diet and denies nausea or vomiting. He is ambulating in the halls. He is voiding on his own after the Goins was removed yesterday. He is asking when he can go home. Objective - Vital Signs/Intake and Output Vital Signs (last 24 hours): Temp Pulse Resp BP Pulse Ox 98 F 54 L 20 132/74 98 11/22/16 23:35 11/22/16 23:35 11/22/16 23:35 11/22/16 23:35 11/22/16 23:35 Intake and Output: 11/23/16 11/23/16 06:59 18:59 Intake Total 910 Output Total 1670 Balance -760 - Medications Medications: Current Medications Acetaminophen (Tylenol 325mg Tab) 650 mg PO Q6 PRN PRN Reason: Fever >100.4 F Enoxaparin Sodium (Lovenox) 40 mg SC DAILY [facility] Last Admin: 11/22/16 10:12 Dose: 40 mg Potassium Chloride/Dextrose/Sod Cl (Potassium Chl 40 Meq In D5-1/2ns) 1,000 mls @ 70 mls/hr IV .[id number] [facility] Last Admin: 11/22/16 22:17 Dose: 70 mls/hr Insulin Human Regular (Novolin R) 0 unit SC ACHS [facility] PRN Reason: Protocol Last Admin: 11/23/16 07:30 Dose: Not Given Ondansetron HCl (Zofran Inj) 4 mg IVP Q4 PRN PRN Reason: Nausea/Vomiting Oxycodone/Acetaminophen (Percocet 5/325 Mg Tab) 1 tab PO Q4H PRN PRN Reason: Pain, moderate (4-7) Stop: 11/25/16 20:30 Last Admin: 11/22/16 21:10 Dose: 1 tab Tamsulosin HCl (Flomax) 0.4 mg PO DAILY [facility] Last Admin: 11/22/16 10:00 Dose: 0.4 mg - Labs Labs: 11/23/16 07:56 11/23/16 07:56 - Constitutional Appears: Non-toxic, No Acute Distress - Head Exam Head Exam: ATRAUMATIC, NORMAL INSPECTION - Eye Exam Eye Exam: EOMI, Normal appearance - Respiratory Exam Respiratory Exam: NORMAL BREATHING PATTERN. absent: Respiratory Distress - Cardiovascular Exam Cardiovascular Exam: +S1, +S2 - GI/Abdominal Exam GI & Abdominal Exam: Soft. absent: Distended, Firm, Guarding, Rigid, Tenderness , Rebound Additional comments: Dressings clean/dry/intact - Rectal Exam Additional comments: Lionel drain in place with 30cc output over restaurant shift leader - Neurological Exam Neurological Exam: Alert, Awake, Oriented x3 - Psychiatric Exam Psychiatric exam: Normal Affect, Normal Mood - Skin Skin Exam: Dry, Normal Color, Warm Assessment and Plan - Assessment and Plan (Free Text) Assessment: 86yo M with PMHx of DM, HTN, COPD and squamous cell carcinoma of rectum now s/p Robotic assisted abdominal perineal resection POD#4 - Afebrile, VSS - Lionel drain with 30cc output over restaurant shift leader per nurse - On Flomax, voiding on own without Goins - Having stool output into colostomy - Tolerating full liquid diet, advanced to consistent carbohydrate diet - DCed IV Fluids - Ambulating on own - If tolerates regular diet, will be able to be DCed possibly tomorrow - Discussed plan with Dr. John Hills PGY-2
[2016-11-23] MEDS: Enoxaparin 40 mg Syringe SC SCH (09:45)
--- NOTE | 2016-11-23 12:39 | OP ---
PROCEDURE DATE: 11/19/2016 PREOPERATIVE DIAGNOSES: 1. Recurrent anal cancer. 2. Possible postoperative adhesions, status post open appendectomy 3. S/P Chemo and Radiation in 2012 POSTOPERATIVE DIAGNOSES: 1. Recurrent anal cancer. 2. Possible postoperative adhesions, status post open appendectomy. 3. Extensive scarring of perineal tissue s/p Radiation PROCEDURES DONE: 1. Robotic-assisted abdominoperineal resection. 2. Robotic lysis of Peritoneal adhesions, extensive. SURGEON: Dawson Lopez MD CO FOUNDER AND DIRECTOR: Briseida Key. Briseida was present from the beginning up to the end of the procedure, helped in the prepping and draping, placement of the port, docking/undocking of the robot and closure of the wound as well as the perineal part of the operation. SECOND CO FOUNDER AND DIRECTOR: Ramya Hills, PGY-2 resident ANESTHESIA: General endotracheal tube. ESTIMATED BLOOD LOSS: Around 200 mL. DRAINS: One large pelvic drain was placed. COMPLICATIONS: None. INTRAOPERATIVE FINDINGS: The patient had recurrent anal cancer attached to the right pelvic wall and it took approximately 60-80 minutes extra for the perineal part of the operation to remove the tumor from the pelvic wall completely. INTRAOPERATIVE STEPS: This 86-year-old male who was diagnosed with recurrent anal cancer and patient was consented for robotic-assisted abdominoperineal resection with a possible lysis of adhesions, brought to the OR, placed supine on the operating table. After induction of the anesthesia, abdomen was prepped and draped in usual sterile fashion. The supraumbilical incision was made. After incising skin and subcutaneous tissue, the robotic camera port was placed. Another 3 robotic 8 mm ports were placed in an M shape and robot was brought in. Camera arm and arm 1, arm 2 and arm 4 were docked and the patient was placed in steep Trendelenburg position and the perineal part of the dissection was done. First, rectosigmoid junction was identified and the sigmoid mesentery was dissected. The left ureter as well as right ureter were identified and the distal sigmoid was resected. The dissection of the mesocolon was done up to the sacral promontory and avascular plane of total mesorectal dissection was entered and dissection was carried down to the avascular plane up to the distal rectum. Lateral rectal ligament was divided very close to the envelope to prevent injury to the pelvic nerves and the dissection was carried down all the way to the pelvic diaphragm and on the left side, the dissection plane was opened. On the right side, it appeared to be extremely thickened and edematous tissue due to the radiation and anteriorly now the Denonvilliers fascia was dissected and the dissection was carried down posterior to the Denonvilliers fascia in order to prevent injury to the prostate as well as seminal vesicles and the dissection was carried all the way down up to the pelvic diaphragm and posteriorly, the Waldeyer's fascia was also identified and the dissection was completed. Now, the end colostomy loop of the sigmoid was prepared and it was brought to the left lower quadrant incision. The colostomy site was matured after taking facial incision as well as the subcutaneous incision and after that, all the ports were closed in 2 layers and dry sterile dressing was applied. the perineal part of the procedure was started and the elliptical incision was made after closure of the anal skin with silk and the elliptical incision was carried down and [place] retractor was applied after subcutaneous incision on both sides and the dissection was carried down superiorly through the transverse perineal muscles up to the Denonvilliers fascia and the dissection was carried under the Denonvilliers fascia to protect the prostate. First, posterior dissection was done and dissection was carried down up to the coccyx and pubococcygeal ligament was divided and patient found to have the cancer ingrowth into the right side of the pelvis, starting from 6 o'clock up to the 10 o'clock position and now the left-sided dissection was done. The pelvic cavity was entered and the dissection of the 11 o'clock up to the 5 o'clock was done on the right side to release the specimen and patient found to have extreme adhesion of the recurrent tumor to the right pelvic wall and with blunt and sharp dissection, the whole tumor was completely excised and hemostasis was achieved. The specimen was set on the table for the pathology. The pelvic drain was placed and a #1 looped PDS was used to close the levator ani muscles as well as perineal fat and another layer of perineal fat was sutured with #1 non-looped PDS and subQ with 3-0 Vicryl and skin with 2-0 silk interrupted sutures and a dry sterile dressing was applied. The drain was secured to the skin. The patient tolerated the procedure well. Count of instrument and gauze was correct. There was no apparent complication. The patient was extubated in the OR, sent to the postanesthesia care unit in stable condition. Dawson Lopez MD cc: [id number] TT: 11/23/2016 12:38:38 en AIMEE
--- NOTE | 2016-11-23 22:55 | CP.PCM.PN ---
Subjective - Date & Time of Evaluation Date of Evaluation: 11/22/16 Time of Evaluation: 09:51 - Subjective Subjective: Patient seen and examined at bedside. He is doing well and states that he has no abdominal pain unless he is walking. He is tolerating his clear liquid diet and denies nausea or vomiting but states that he has no appetite. He is ambulating in his room and been OOB to chair with his . He is using his IS. Objective - Vital Signs/Intake and Output Vital Signs (last 24 hours): Temp Pulse Resp BP Pulse Ox 98.2 F 63 20 147/79 100 11/23/16 17:50 11/23/16 17:50 11/23/16 17:50 11/23/16 17:50 11/23/16 17:50 - Medications Medications: Current Medications Acetaminophen (Tylenol 325mg Tab) 650 mg PO Q6 PRN PRN Reason: Fever >100.4 F Enoxaparin Sodium (Lovenox) 40 mg SC DAILY [facility] Last Admin: 11/23/16 09:45 Dose: 40 mg Insulin Human Regular (Novolin R) 0 unit SC ACHS [facility] PRN Reason: Protocol Last Admin: 11/23/16 17:30 Dose: Not Given Ondansetron HCl (Zofran Inj) 4 mg IVP Q4 PRN PRN Reason: Nausea/Vomiting Oxycodone/Acetaminophen (Percocet 5/325 Mg Tab) 1 tab PO Q4H PRN PRN Reason: Pain, moderate (4-7) Stop: 11/25/16 20:30 Last Admin: 11/22/16 21:10 Dose: 1 tab Tamsulosin HCl (Flomax) 0.4 mg PO DAILY [facility] Last Admin: 11/23/16 09:45 Dose: 0.4 mg - Labs Labs: 11/23/16 07:56 11/23/16 07:56 - Constitutional Appears: No Acute Distress, Chronically Ill - Eye Exam Eye Exam: EOMI, Normal appearance, PERRL Pupil Exam: NORMAL ACCOMODATION, PERRL - Respiratory Exam Respiratory Exam: Clear to Ausculation Bilateral, NORMAL BREATHING PATTERN - Cardiovascular Exam Cardiovascular Exam: REGULAR RHYTHM, +S1, +S2. absent: Murmur - GI/Abdominal Exam GI & Abdominal Exam: Soft, Normal Bowel Sounds. absent: Tenderness Assessment and Plan (1) Rectal cancer Status: Acute (2) Diabetes Status: Acute
--- NOTE | 2016-11-23 22:58 | CP.PCM.PN ---
Subjective - Date & Time of Evaluation Date of Evaluation: 11/23/16 Time of Evaluation: 09:51 - Subjective Subjective: 86yo M seen and examined at bedside with PMHx of DM, HTN, COPD and squamous cell carcinoma of rectum now s/p Robotic assisted abdominal perineal resection POD#4, pt complains of some post op pain and rectal pain but willing to go home - Afebrile, VSS - Lionel drain with 30cc output over lieutenant shift supervisor per nurse - On Flomax, voiding on own without Goins - Having stool output into colostomy - Tolerating full liquid diet, advanced to consistent carbohydrate diet - DCed IV Fluids - Ambulating on own - If tolerates regular diet, will be able to be DCed possibly tomorrow Objective - Vital Signs/Intake and Output Vital Signs (last 24 hours): Temp Pulse Resp BP Pulse Ox 98.2 F 63 20 147/79 100 11/23/16 17:50 11/23/16 17:50 11/23/16 17:50 11/23/16 17:50 11/23/16 17:50 - Medications Medications: Current Medications Acetaminophen (Tylenol 325mg Tab) 650 mg PO Q6 PRN PRN Reason: Fever >100.4 F Enoxaparin Sodium (Lovenox) 40 mg SC DAILY [facility] Last Admin: 11/23/16 09:45 Dose: 40 mg Insulin Human Regular (Novolin R) 0 unit SC ACHS [facility] PRN Reason: Protocol Last Admin: 11/23/16 17:30 Dose: Not Given Ondansetron HCl (Zofran Inj) 4 mg IVP Q4 PRN PRN Reason: Nausea/Vomiting Oxycodone/Acetaminophen (Percocet 5/325 Mg Tab) 1 tab PO Q4H PRN PRN Reason: Pain, moderate (4-7) Stop: 11/25/16 20:30 Last Admin: 11/22/16 21:10 Dose: 1 tab Tamsulosin HCl (Flomax) 0.4 mg PO DAILY [facility] Last Admin: 11/23/16 09:45 Dose: 0.4 mg - Labs Labs: 11/23/16 07:56 11/23/16 07:56 - Constitutional Appears: No Acute Distress, Chronically Ill - Eye Exam Eye Exam: EOMI, Normal appearance, PERRL Pupil Exam: NORMAL ACCOMODATION, PERRL - Respiratory Exam Respiratory Exam: Clear to Ausculation Bilateral, NORMAL BREATHING PATTERN - Cardiovascular Exam Cardiovascular Exam: REGULAR RHYTHM, +S1, +S2. absent: Murmur - GI/Abdominal Exam GI & Abdominal Exam: Soft, Normal Bowel Sounds. absent: Tenderness - Neurological Exam Neurological Exam: Alert, Awake, CN II-XII Intact, Normal Gait, Oriented x3 - Psychiatric Exam Psychiatric exam: Normal Affect, Normal Mood Assessment and Plan (1) Rectal cancer Status: Acute (2) Diabetes Status: Acute
[2016-11-23] MEDS: Oxycodone/Acetaminophen 5/325 mg Tab PO PRN (23:20)
[2016-11-24] MEDS: (Novolin R) Insulin Human Regular 100 units/ml vial SC SCH ×3 (07:30→16:45)
[2016-11-24 08:42] VITALS: O2SAT 97
[2016-11-24] MEDS: Enoxaparin 40 mg Syringe SC SCH (09:35)
--- NOTE | 2016-11-24 14:36 | CP.PCM.DIS ---
Provider - Provider Date of Admission: 11/19/16 06:51 Attending physician: Dawson Lopez MD Consults: Dr. Juan Grant (medicine) Time Spent in preparation of Discharge (in minutes): 30 Hospital Course - Lab Results Lab Results: Most Recent Lab Values WBC 4.4 K/uL (4.8-10.8) L 11/23/16 07:56 RBC 3.40 Mil/uL (4.40-5.90) L 11/23/16 07:56 Hgb 11.3 g/dL (12.0-18.0) L 11/23/16 07:56 Hct 33.0 % (35.0-51.0) L 11/23/16 07:56 MCV 97.0 fL (80.0-94.0) H 11/23/16 07:56 MCH 33.2 pg (27.0-31.0) H 11/23/16 07:56 MCHC 34.2 g/dL (33.0-37.0) 11/23/16 07:56 RDW 14.2 % (11.5-14.5) 11/23/16 07:56 Plt Count 223 K/uL (130-400) 11/23/16 07:56 MPV 7.7 fL (7.2-11.7) 11/23/16 07:56 Neut % (Auto) 68.4 % (50.0-75.0) 11/23/16 07:56 Lymph % (Auto) 15.7 % (20.0-40.0) L 11/23/16 07:56 [place] % (Auto) 10.7 % (0.0-10.0) H 11/23/16 07:56 Eos % (Auto) 5.0 % (0.0-4.0) H 11/23/16 07:56 Baso % (Auto) 0.2 % (0.0-2.0) 11/23/16 07:56 Neut # 3.0 K/uL (1.8-7.0) 11/23/16 07:56 Lymph # 0.7 K/uL (1.0-4.3) L 11/23/16 07:56 [place] # 0.5 K/uL (0.0-0.8) 11/23/16 07:56 Eos # 0.2 K/uL (0.0-0.7) 11/23/16 07:56 Baso # 0.0 K/uL (0.0-0.2) 11/23/16 07:56 Sodium 139 mmol/L (132-148) 11/23/16 07:56 Potassium 3.9 mmol/L (3.6-5.2) 11/23/16 07:56 Chloride 104 mmol/L (98-107) 11/23/16 07:56 Carbon Dioxide 25 mmol/L (22-30) 11/23/16 07:56 Anion Gap 14 (10-20) 11/23/16 07:56 BUN 7 mg/dL (9-20) L 11/23/16 07:56 Creatinine 0.9 MG/DL (0.8-1.5) 11/23/16 07:56 Est GFR ( Amer) > 60 11/23/16 07:56 Est GFR (Non-Af Amer) > 60 11/23/16 07:56 POC Glucose (mg/dL) 102 mg/dL (65-110) 11/24/16 11:42 Random Glucose 110 mg/dL (75-110) 11/23/16 07:56 Calcium 8.3 mg/dl (8.6-10.4) L 11/23/16 07:56 Total Bilirubin 0.3 mg/dL (0.2-1.3) 11/23/16 07:56 AST 30 U/L (17-59) 11/23/16 07:56 ALT 38 U/L (21-72) 11/23/16 07:56 Alkaline Phosphatase 47 U/L (38-126) 11/23/16 07:56 Total Protein 6.3 g/dL (6.3-8.3) 11/23/16 07:56 Albumin 3.4 g/dL (3.5-5.0) L 11/23/16 07:56 Globulin 2.8 gm/dL (2.2-3.9) 11/23/16 07:56 Albumin/Globulin Ratio 1.2 (1.0-2.1) 11/23/16 07:56 Blood Type B POSITIVE 11/19/16 07:57 Antibody Screen Negative 11/19/16 07:57 - Hospital Course Hospital Course: 86yo M with PMHx of HTN, DM, COPD with recurrent squamous cell carcinoma of rectum who presented to same day surgery on 11/19/16 and underwent Robotic assisted abdominal perineal resection. A lionel drain was left. Klein and NG tube were placed during surgery. Patient was initially given CHIEF LOAD DISPATCHER for analgesia. On POD#1, he was advanced to CLD and the NG tube and klein were removed. CHIEF LOAD DISPATCHER was switched to PRN pain medication. Physical therapy was initiated. On POD#3, he had some liquid stool output into his colostomy bag and he was advanced to full liquids. The next day, he was advanced to regular diet. On POD#5, he was tolerating regular diet, having stool output into his colostomy, ambulating on his own, with minimal pain. He was discharged home with home visiting nursing services and to follow up with Dr. Lopez next Thursday for Lionel drain and suture removal. Discharge Exam - Head Exam Head Exam: ATRAUMATIC, NORMAL INSPECTION - Eye Exam Eye Exam: EOMI, Normal appearance - Respiratory Exam Respiratory Exam: UNREMARKABLE. absent: NORMAL BREATHING PATTERN - Cardiovascular Exam Cardiovascular Exam: +S1, +S2 - GI/Abdominal Exam GI & Abdominal Exam: Soft, Tenderness (mild tenderness around incision sites, normal in post operative period). absent: Distended, Firm, Guarding, Rebound, Rigid Additional comments: Dressings removed, steri strips in place over laparoscopic incisions - Rectal Exam Additional comments: Dressing removed, no drainage noted, sutures in place - Neurological Exam Neurological exam: Alert, CN II-XII Intact, Oriented x3 - Psychiatric Exam Psychiatric exam: Normal Affect, Normal Mood - Skin Skin Exam: Dry, Normal Color, Warm Discharge Plan - Follow Up Plan Condition: GOOD Disposition: HOME/ ROUTINE Patient education suggested?: Yes Instructions: Colostomy Care (DC), Duy-Hamm Drain Care (DC), Colostomy Creation (DC) Additional Instructions: Patient is to have visiting nurse services for colostomy care. Patient is being discharged with prescription for levaquin and flagyl for 7 days. Patient will also need large colostomy wafer and colostomy bags on discharge. Patient is to follow up with Dr. Lopez next Thursday for drain removal and stitch removal. Leave steri strips in place. They will fall off on their own over time. You may shower but do not take a bath or swim. Avoid heavy lifting. Referrals: Dawson Lopez MD [Staff Provider] - 12/02/16 Clinical Quality Measures - Date & Time of Discharge Summary Date of Discharge Summary: 11/24/16 Time of Discharge Summary: 14:37
[2016-11-24 17:19] VITALS: BP 114/68; PULSE 65; RESP 20; TEMP 98.4
--- NOTE | 2016-11-25 00:21 | CP.PCM.DIS ---
Provider - Provider Date of Admission: 11/19/16 06:51 Attending physician: Dawson Lopez MD Time Spent in preparation of Discharge (in minutes): 30 Diagnosis - Discharge Diagnosis (1) Rectal cancer Status: Acute (2) Diabetes Status: Acute Hospital Course - Lab Results Lab Results: Most Recent Lab Values WBC 4.4 K/uL (4.8-10.8) L 11/23/16 07:56 RBC 3.40 Mil/uL (4.40-5.90) L 11/23/16 07:56 Hgb 11.3 g/dL (12.0-18.0) L 11/23/16 07:56 Hct 33.0 % (35.0-51.0) L 11/23/16 07:56 MCV 97.0 fL (80.0-94.0) H 11/23/16 07:56 MCH 33.2 pg (27.0-31.0) H 11/23/16 07:56 MCHC 34.2 g/dL (33.0-37.0) 11/23/16 07:56 RDW 14.2 % (11.5-14.5) 11/23/16 07:56 Plt Count 223 K/uL (130-400) 11/23/16 07:56 MPV 7.7 fL (7.2-11.7) 11/23/16 07:56 Neut % (Auto) 68.4 % (50.0-75.0) 11/23/16 07:56 Lymph % (Auto) 15.7 % (20.0-40.0) L 11/23/16 07:56 [place] % (Auto) 10.7 % (0.0-10.0) H 11/23/16 07:56 Eos % (Auto) 5.0 % (0.0-4.0) H 11/23/16 07:56 Baso % (Auto) 0.2 % (0.0-2.0) 11/23/16 07:56 Neut # 3.0 K/uL (1.8-7.0) 11/23/16 07:56 Lymph # 0.7 K/uL (1.0-4.3) L 11/23/16 07:56 [place] # 0.5 K/uL (0.0-0.8) 11/23/16 07:56 Eos # 0.2 K/uL (0.0-0.7) 11/23/16 07:56 Baso # 0.0 K/uL (0.0-0.2) 11/23/16 07:56 Sodium 139 mmol/L (132-148) 11/23/16 07:56 Potassium 3.9 mmol/L (3.6-5.2) 11/23/16 07:56 Chloride 104 mmol/L (98-107) 11/23/16 07:56 Carbon Dioxide 25 mmol/L (22-30) 11/23/16 07:56 Anion Gap 14 (10-20) 11/23/16 07:56 BUN 7 mg/dL (9-20) L 11/23/16 07:56 Creatinine 0.9 MG/DL (0.8-1.5) 11/23/16 07:56 Est GFR ( Amer) > 60 11/23/16 07:56 Est GFR (Non-Af Amer) > 60 11/23/16 07:56 POC Glucose (mg/dL) 102 mg/dL (65-110) 11/24/16 11:42 Random Glucose 110 mg/dL (75-110) 11/23/16 07:56 Calcium 8.3 mg/dl (8.6-10.4) L 11/23/16 07:56 Total Bilirubin 0.3 mg/dL (0.2-1.3) 11/23/16 07:56 AST 30 U/L (17-59) 11/23/16 07:56 ALT 38 U/L (21-72) 11/23/16 07:56 Alkaline Phosphatase 47 U/L (38-126) 11/23/16 07:56 Total Protein 6.3 g/dL (6.3-8.3) 11/23/16 07:56 Albumin 3.4 g/dL (3.5-5.0) L 11/23/16 07:56 Globulin 2.8 gm/dL (2.2-3.9) 11/23/16 07:56 Albumin/Globulin Ratio 1.2 (1.0-2.1) 11/23/16 07:56 Blood Type B POSITIVE 11/19/16 07:57 Antibody Screen Negative 11/19/16 07:57 - Hospital Course Hospital Course: 86yo M with PMHx of HTN, DM, COPD with recurrent squamous cell carcinoma of rectum who presented to same day surgery on 11/19/16 and underwent Robotic assisted abdominal perineal resection. A josué drain was left. Klein and NG tube were placed during surgery. Patient was initially given ROCK BREAKER for analgesia. On POD#1, he was advanced to CLD and the NG tube and klein were removed. ROCK BREAKER was switched to PRN pain medication. Physical therapy was initiated. On POD#3, he had some liquid stool output into his colostomy bag and he was advanced to full liquids. The next day, he was advanced to regular diet. On POD#5, he was tolerating regular diet, having stool output into his colostomy, ambulating on his own, with minimal pain. He was discharged home with home visiting nursing services and to follow up with Dr. Lopez next Thursday for Josué drain and suture removal. Discharge Exam - Head Exam Head Exam: ATRAUMATIC, NORMAL INSPECTION - Eye Exam Eye Exam: EOMI, Normal appearance, PERRL Pupil Exam: NORMAL ACCOMODATION, PERRL - ENT Exam ENT Exam: Mucous Membranes Moist - Respiratory Exam Respiratory Exam: Clear to PA & Lateral - Cardiovascular Exam Cardiovascular Exam: REGULAR RHYTHM, +S1, +S2 - GI/Abdominal Exam GI & Abdominal Exam: Normal Bowel Sounds - Rectal Exam Rectal Exam: Deferred Discharge Plan - Follow Up Plan Condition: GOOD Disposition: DISCHARGED TO HOME CARE Instructions: Colostomy Care (DC), Duy-Hamm Drain Care (DC), Colostomy Creation (DC) Additional Instructions: Patient is to have visiting nurse services for colostomy care. Patient is being discharged with prescription for levaquin and flagyl for 7 days. Patient will also need large colostomy wafer and colostomy bags on discharge. Patient is to follow up with Dr. Lopez next Thursday for drain removal and stitch removal. Leave steri strips in place. They will fall off on their own over time. You may shower but do not take a bath or swim. Avoid heavy lifting. Referrals: Dawson Lopez MD [Staff Provider] - 12/02/16
== END 2016-11-24 17:05 | disposition home health service (06) | DRG 331 ==
LOC: C.9S 06:51 → C.6T 18:44
PROVIDERS: ADMIT Surgery Surgical Critical Care; ATTEND Surgery Surgical Critical Care
PROC: 0DTN4ZZ Resection of Sigmoid Colon, Percutaneous Endoscopic Approach (ICD-10-PCS; 2016-11-19)
PROC: 0DTQ0ZZ Resection of Anus, Open Approach (ICD-10-PCS; 2016-11-19)
PROC: 0D1N4Z4 Bypass Sigmoid Colon to Cutaneous, Percutaneous Endoscopic Approach (ICD-10-PCS; 2016-11-19)
PROC: 0DNW4ZZ Release Peritoneum, Percutaneous Endoscopic Approach (ICD-10-PCS; 2016-11-19)
PROC: 8E0W4CZ Robotic Assisted Procedure of Trunk Region, Percutaneous Endoscopic Approach (ICD-10-PCS; 2016-11-19)
PROC: 0DTP4ZZ Resection of Rectum, Percutaneous Endoscopic Approach (ICD-10-PCS; principal; 2016-11-19 09:00)
DX: C20 Malignant neoplasm of rectum (principal); J44.9 Chronic obstructive pulmonary disease, unspecified; E11.9 Type 2 diabetes mellitus without complications; K66.0 Peritoneal adhesions (postprocedural) (postinfection); I10 Essential (primary) hypertension; E87.6 Hypokalemia; R33.9 Retention of urine, unspecified; E03.9 Hypothyroidism, unspecified; Z96.1 Presence of intraocular lens; Z87.891 Personal history of nicotine dependence; Z85.038 Personal history of other malignant neoplasm of large intestine; Z98.42 Cataract extraction status, left eye; Z98.41 Cataract extraction status, right eye; Z92.21 Personal history of antineoplastic chemotherapy; Z92.3 Personal history of irradiation; Z90.49 Acquired absence of other specified parts of digestive tract

== ENCOUNTER 2018-01-18 08:05 | Day surgery (SDC) | payer MEDICARE ==
[2018-01-12 12:26] VITALS: BMI 32.4
[2018-01-18] MEDS ORDERED: Midazolam 2 MG/2 ML VIAL ONE (10:40)
--- NOTE | 2018-01-18 11:28 | CP.SDSHP ---
Same Day Surgery H & P - History Proposed Procedure: CT guided right lung mass biopsy Pre-Op Diagnosis: Right lung mass - Allergies Allergies: Allergies No Known Allergies Allergy (Verified 12/24/16 07:13) - Physical Exam Vital Signs: Vital Signs 01/18/18 08:23 Temperature 97.6 F Pulse Rate 74 Respiratory 20 Rate Blood Pressure 133/81 O2 Sat by Pulse 96 Oximetry Mental Status: Alert & Oriented x3 Neuro: WNL Heart: WNL Lungs: WNL - Impression Impression: Pt with a large PET positive right upper lobe lung mass. Plan CT guided right lung mass biopsy. Informed consent obtained. Pt. Evaluated Today:Candidate for Anesthesia & Procedure: Yes (ASA 3 Malampati 3) - Date & Time Date: 01/18/18 Time: 11:00 Short Stay Discharge - Short Stay Discharge Admitting Diagnosis/Reason for Visit: dx:rectal ca -c20 Disposition: HOME/ ROUTINE
--- NOTE | 2018-01-18 11:29 | PCM.SURG1 ---
Surgeon's Initial Post Op Note - Surgeon's Notes Surgeon: Sivakumar Jimenez MD Corn Breeder: NONE Type of Anesthesia: Local Pre-Operative Diagnosis: Right lung mass Operative Findings: CT showed a 3.6 cm right upper lobe lung mass. Post-Operative Diagnosis: Right lung mass Operation Performed: CT guided core biopsy Specimen/Specimens Removed: 20 gauge core x 3 Estimated Blood Loss: EBL {In ML}: 0 Blood Products Given: N/A Drains Used: No Drains Post-Op Condition: Good Date of Surgery/Procedure: 01/18/18 Time of Surgery/Procedure: 11:25
[2018-01-18 12:09] VITALS: RESP 18; TEMP 97
[2018-01-18 13:05] VITALS: BP 106/76; PULSE 63; O2SAT 96
--- NOTE | 2018-01-18 14:30 | RAD ---
PROCEDURE: CHEST RADIOGRAPH, 1 VIEW HISTORY: Status post right lung mass biopsy COMPARISON: 11/05/2016 FINDINGS: LUNGS: Roughly rounded opacity in the right upper lobe, approximately 3.9 cm diameter. Concerning for neoplasm versus rounded pneumonia. No infiltrate seen elsewhere. PLEURA: Small right apical pneumothorax. No evidence of pleural effusion. CARDIOVASCULAR: Normal heart size. No congestive change. OSSEOUS STRUCTURES: No significant abnormalities. VISUALIZED UPPER ABDOMEN: Normal. OTHER FINDINGS: None. IMPRESSION: Right upper lobe mass versus rounded pneumonia. Small right apical pneumothorax. Follow-up advised.
--- NOTE | 2018-01-19 10:38 | CT ---
PROCEDURE: Date of procedure: 01/18/2018 Procedure: 1. CT-guided lung mass biopsy, CPT [address] Guidance for biopsy, [address] Radiation: 1478.22 mGy-cm Medications: The patient was sedated by anesthesiologist along with physiologic monitoring. HISTORY: Right upper lobe lung mass TECHNIQUE: Following informed consent, the Pt's chest was marked. The Pt was placed prone on the CT table and procedure time out was performed. A noncontrast CT scan was performed. Noncontrast CT scan confirmed the presence of a RUL medial 3.9 cm x 2.6 cm mass. A skin localizer was placed on the patient's right chest and a repeat CT scan was performed. The skin was marked, prepped, and draped in the usual sterile fashion. After the skin was anesthetized with lidocaine and the patient sedated by the anesthesiologist, a 20 gauge core needle was advanced percutaneously under direct CT guidance into the mass. Upon confirmation of needle position, three 20-gauge core specimens were obtained and sent for routine pathology. The needle was removed and a xeroform dressing was applied. A post biopsy CT scan showed no pneumothorax. IMPRESSION: CT guided core biopsy right upper lobe lung mass. There were no immediate complications.
== END 2018-01-18 14:34 | disposition home or self-care (01) ==
LOC: C.SPRAD 08:05
PROVIDERS: ATTEND Radiology Vascular & Interventional Radiology
DX: C78.01 Secondary malignant neoplasm of right lung (principal); C20 Malignant neoplasm of rectum; R91.8 Other nonspecific abnormal finding of lung field; J44.9 Chronic obstructive pulmonary disease, unspecified; E03.9 Hypothyroidism, unspecified; I10 Essential (primary) hypertension; N40.0 Benign prostatic hyperplasia without lower urinary tract symptoms; G40.909 Epilepsy, unspecified, not intractable, without status epilepticus; Z87.891 Personal history of nicotine dependence
CPT/HCPCS: 32405; 71045; 77012; 82948; 88305; J2250; J3010